=== PATIENT | female | born 1960 | race Caucasian/White ===

== ENCOUNTER 2016-09-10 15:29 | Outpatient (CLI) ==
--- NOTE | 2016-09-10 15:57 | DI ---
Exam: Two x-rays of the chest. Reason for exam: Cough. Comparison: None available. Reason for exam: Cough. FINDINGS: No pneumothorax, pleural effusion, or focal consolidation. The cardiac silhouette is not enlarged. The imaged osseous structures are unremarkable without acute fracture. Impression: No acute cardiopulmonary process.
--- NOTE | 2016-09-10 16:01 | DI ---
Exam: Six x-rays of the cervical spine. Comparison: None available. Reason for exam: Pain with radiculopathy. FINDINGS: Imaging is obtained to the level of the C6 vertebral body. The C6-C7 and C7-T1 interspac e are not well seen secondary to summation shadowing. The dens is intact on the Alvarez view. No acute fracture or listhesis. The prevertebral soft tissu es are within normal limits. There is straightening of the cervical lordotic curve. Impression: 1. No acute fracture or listhesis in the imaged portions of the cervical spine. 2. The C6-7 and C7-T1 interspaces and C7 and T1 vertebral bodies are not well seen secondary to sum mation shadowing. If clinical concern exists for radiculopathy, MRI may be performed.
--- NOTE | 2016-09-10 16:23 | DI ---
EXAM: Lumbar spine five views HISTORY: Back pain COMPARISON: None TECHNIQUE: Five views lumbar spine were performed including oblique views FINDINGS: Sacroiliac joints intact. Sacral arcuate lines intact. Vertebral bodies normal in heigh t. No subluxation. Multilevel marginal osteophyte formation. Intervertebral disc spaces maintained . Suggestion of multilevel facet arthrosis. Questionable left unilateral pars defect L5. Mild ath erosclerosis. IMPRESSION: 1. Chronic discogenic degenerative disease and facet arthrosis. 2. Questionable left unilateral pars defect L5. No anterolisthesis.
== END 2016-09-10 15:30 | disposition home or self-care (01) ==
LOC: RAD 15:29
PROVIDERS: ATTEND Internal Medicine
DX: R05 Cough (principal); M54.9 Dorsalgia, unspecified; M54.10 Radiculopathy, site unspecified

== ENCOUNTER 2017-01-22 08:40 | Outpatient (CLI) ==
--- NOTE | 2017-01-22 09:27 | US ---
EXAM: Transvaginal pelvic ultrasound HISTORY: Pelvic pain with history of ablation COMPARISON: None TECHNIQUE: Transvaginal pelvic ultrasound was performed to better evaluate the structures. Limited Doppler was provided. FINDINGS: The uterus measures 5.9 x 2.8 x 3.5 cm. There is a complex hypoechoic mass in the uterus most consistent with a fibroid measuring 1.7 x 1.3 x 2.0 cm. The endometrium measures 0.3 cm in thic kness. Cervix is normal in appearance. The right ovary is not seen. The left ovary measures 1.4 x 1.9 x 1.5 cm. There is normal color Doppler flow. IMPRESSION: 1. Complex hypoechoic mass in the uterus most consistent with a fibroid. 2. No additional abnormality is identified.
== END 2017-01-22 08:41 | disposition home or self-care (01) ==
LOC: RAD 08:40
PROVIDERS: ATTEND Nurse Practitioner Family
DX: R10.2 Pelvic and perineal pain (principal)

== ENCOUNTER 2017-05-05 10:19 | Outpatient (CLI) | payer OTHER | END 2017-05-05 10:20 | disposition home or self-care (01) | LOC: FCC-LAB 10:19 | PROVIDERS: ATTEND Nurse Practitioner Family | DX: R50.9 Fever, unspecified (principal) | CPT/HCPCS: 87804 ==

== ENCOUNTER 2019-11-24 09:06 | Observation (INO) ==
--- NOTE | 2019-11-24 09:40 | ED.PDOC ---
General ED Provider: Dr. CHRISTA MENDOZA Chief Complaint: Chest Pain Stated Complaint: Chest pain Intermittent for 5 days; initially occurred when at work, walking and exertional activities Time Seen by Physician: 09:25 Mode of Arrival: Walk-In Information Source: Patient Exam Limitations: No limitations Primary Care Provider: HERSON RAI Nursing and Triage Documentation Reviewed and Agree: Yes Does patient meet sepsis criteria?: No System Inflammatory Response Syndrome: Not Applicable Sepsis Protocol: For patient's 13 years and over: Temp is 96.8 and below OR 101 and greater Pulse >90 BPM Resp >20/minute Acutely Altered Mental Status Are patient's symptoms suggestive of a new infection, such as: -Pneumonia -Skin, Soft Tissue -Endocarditis -UTI -Bone, Joint Infection -Implantable Device -Acute Abdominal Infection -Wound Infection -Meningitis -Blood Stream Catheter Infection -Unknown Cardiovascular Complaint Exam Chest Pain Complaint/Exam Onset: Gradual Duration: 12 hr intermittently Symptoms Are: Resolved Timing: Intermittent Initial Severity: Moderate Current Severity: Mild Location: Reports Discrete, Midsternal and Left anterior Pain Radiates: Reports None Character: Reports Dull, Aching and Tightness Aggravating: Reports Movement and Deep breaths Alleviating: Reports Spontaneous resolution Associated Signs and Symptoms: Denies Diaphoresis, Nausea, Vomiting, Fever, Palpitations, Cough, Hemoptysis, Back pain, Abdominal pain, Dizziness, Short of air, Calf pain and Calf swelling Related History: Reports Similar episode Related Surgical History: Reports None History of Healthcare-Acquired Pneumonia: Reports No AMI/ACS Risk Factors: Reports None TAD Risk Factors: Reports None Pulmonary Embolism Risk Factors: Reports Smoking Prior Care for this Complaint: No Recent Stress Test: No Recent Echo/LV Function: No JVD Present: No Subcutaneous Emphysema Present: No Diminshed Breath Sounds: No Reproducible Chest Wall Pain: No Bilateral Pulses Present: Yes Unequal Pulses Noted: No Documents Reviewed: EMS records, Labs, Imaging and EKG Patient Advised to Stop Smoking: Yes Review of Systems Review Of Systems Constitutional: Reports No symptoms Eyes: Reports No symptoms Ears, Nose, Mouth, Throat: Reports No symptoms Respiratory: Reports No symptoms Cardiac: Reports No symptoms GI: Reports No symptoms : Reports No symptoms Musculoskeletal: Reports No symptoms Skin: Reports No symptoms Neurological: Reports No symptoms Endocrine: Reports No symptoms Hematologic/Lymphatic: Reports No symptoms All Other Systems: Reviewed and Negative [facility] Medical History High triglycerides Hyperlipidemia Hypertension Family History Mother Heart attack Social History (Updated 11/24/19 @ 11:37 by CARLOS LAMBERT RN) Smoking and tobacco status: Current every day smoker Female Reproductive History Menstrual Hx Hysterectomy: No Hx Tubal Ligation: No Physical Exam Physical Exam Appearance: Reports Well-appearing, No pain distress and Well-nourished Ill-appearing: None Pain Distress: None Eyes: Reports RAYMUNDO, EOMI and Conjunctiva clear ENT: Reports Ears normal, Nose normal and Oropharynx normal Neck: Supple Respiratory: Reports Airway patent, Breath sounds clear, Breath sounds equal and Respirations nonlabored Cardiovascular: Reports RRR, Pulses normal, No rub and No murmur GI/: Reports Soft, Nontender, No masses, Bowel sounds normal and No Organomegaly Musculoskeletal: Reports Normal strength, ROM intact, No edema and No calf tenderness Skin: Reports Warm, Dry and Normal color Neurological: Reports Sensation intact, Motor intact, Reflexes intact, Cranial nerves intact, Alert and Oriented Psychiatric: Reports Affect appropriate and Mood appropriate Critical Care Note Critical Care Note Total Time (mins): 30 Comments: Pts condition monitored, labs obtained and reviewed. Coordinated hospital care with DR Rai and completed admitting orders Course Course Hematology/Chemistry: 11/24/19 09:50 11/24/19 09:50 Orders, Labs, Meds: Lab Review 11/24/19 11/24/19 11/24/19 09:50 09:50 09:50 WBC 5.75 RBC 4.28 Hgb 13.1 Hct 39.2 MCV 91.6 MCH 30.6 MCHC 33.4 RDW Coeff of Jonathan 13.0 Plt Count 223 Immature Gran % (Auto) 0.2 Neut % (Auto) 60.0 Lymph % (Auto) 31.1 Grand % (Auto) 7.0 Eos % (Auto) 1.0 Baso % (Auto) 0.7 Neut # (Auto) 3.5 Lymph # (Auto) 1.8 Grand # (Auto) 0.4 Eos # (Auto) 0.1 Baso # (Auto) 0.0 Immature Gran # (Auto) 0.0 ESR PT INR APTT Sodium 137.7 Potassium 3.93 Chloride 103.5 Carbon Dioxide 32.7 H Anion Gap 5.43 BUN 13.7 Creatinine 0.66 Estimated GFR (MDRD) 92.00 BUN/Creatinine Ratio 20.75 Glucose 109.5 H Calcium 9.56 Magnesium Total Bilirubin 0.35 AST 45.9 H ALT 29.7 Alkaline Phosphatase 57.2 Troponin I Total Protein 6.83 Albumin 3.94 Globulin 2.89 Albumin/Globulin Ratio 1.36 Amylase 59.9 Lipase D-Dimer 284.17 Urine Color Urine Clarity Urine pH Ur Specific [place] Urine Protein Urine Glucose (UA) Urine Ketones Urine Blood Urine Nitrite Urine Bilirubin Urine Urobilinogen Ur Leukocyte Esterase Urine Microscopic RBC Ur Squamous Epith Cells Urine Opiates Screen Ur Oxycodone Screen Urine Methadone Screen Ur Propoxyphene Screen Ur Barbiturates Screen U Tricyclic Antidepress Ur Phencyclidine Scrn Ur Amphetamine Screen U Methamphetamines Scrn U Benzodiazepines Scrn Urine Cocaine Screen U Cannabinoids Screen 11/24/19 11/24/19 11/24/19 09:50 09:50 09:50 WBC RBC Hgb Hct MCV MCH MCHC RDW Coeff of Jonathan Plt Count Immature Gran % (Auto) Neut % (Auto) Lymph % (Auto) Grand % (Auto) Eos % (Auto) Baso % (Auto) Neut # (Auto) Lymph # (Auto) Grand # (Auto) Eos # (Auto) Baso # (Auto) Immature Gran # (Auto) ESR 8 PT 10.0 INR 1.02 APTT 25.1 Sodium Potassium Chloride Carbon Dioxide Anion Gap BUN Creatinine Estimated GFR (MDRD) BUN/Creatinine Ratio Glucose Calcium Magnesium 1.98 Total Bilirubin AST ALT Alkaline Phosphatase Troponin I 0.025 Total Protein Albumin Globulin Albumin/Globulin Ratio Amylase Lipase 59.9 D-Dimer Urine Color Urine Clarity Urine pH Ur Specific [place] Urine Protein Urine Glucose (UA) Urine Ketones Urine Blood Urine Nitrite Urine Bilirubin Urine Urobilinogen Ur Leukocyte Esterase Urine Microscopic RBC Ur Squamous Epith Cells Urine Opiates Screen Ur Oxycodone Screen Urine Methadone Screen Ur Propoxyphene Screen Ur Barbiturates Screen U Tricyclic Antidepress Ur Phencyclidine Scrn Ur Amphetamine Screen U Methamphetamines Scrn U Benzodiazepines Scrn Urine Cocaine Screen U Cannabinoids Screen 11/24/19 11/24/19 10:04 10:04 WBC RBC Hgb Hct MCV MCH MCHC RDW Coeff of Jonathan Plt Count Immature Gran % (Auto) Neut % (Auto) Lymph % (Auto) Grand % (Auto) Eos % (Auto) Baso % (Auto) Neut # (Auto) Lymph # (Auto) Grand # (Auto) Eos # (Auto) Baso # (Auto) Immature Gran # (Auto) ESR PT INR APTT Sodium Potassium Chloride Carbon Dioxide Anion Gap BUN Creatinine Estimated GFR (MDRD) BUN/Creatinine Ratio Glucose Calcium Magnesium Total Bilirubin AST ALT Alkaline Phosphatase Troponin I Total Protein Albumin Globulin Albumin/Globulin Ratio Amylase Lipase D-Dimer Urine Color Yellow Urine Clarity Clear Urine pH 7.5 Ur Specific [place] 1.020 Urine Protein Negative Urine Glucose (UA) Negative Urine Ketones Negative Urine Blood Trace-intact H Urine Nitrite Negative Urine Bilirubin Negative Urine Urobilinogen 0.2 Ur Leukocyte Esterase Negative Urine Microscopic RBC 0-2 Ur Squamous Epith Cells 20-30 Urine Opiates Screen Positive H Ur Oxycodone Screen Negative Urine Methadone Screen Negative Ur Propoxyphene Screen Negative Ur Barbiturates Screen Negative U Tricyclic Antidepress Negative Ur Phencyclidine Scrn Negative Ur Amphetamine Screen Negative U Methamphetamines Scrn Negative U Benzodiazepines Scrn Negative Urine Cocaine Screen Negative U Cannabinoids Screen Negative Orders Category Date Time Status EKG-(ED ONLY) Stat CARDIO 11/24/19 09:41 Completed OXYGEN Routine CARDIO 11/24/19 11:16 Completed ACTIVITY .BR with BRP CARE 11/24/19 11:17 Active BLOOD GLUCOSE MONITORING 0630,1100,1700,2100 CARE 11/24/19 11:18 Active INTAKE & OUTPUT Q8HR CARE 11/24/19 11:17 Active Notify RT of Treatment ONCE CARE 11/24/19 11:18 Active VITAL SIGNS Q4HR CARE 11/24/19 11:17 Active CARDIAC DIET DIETARY 11/24/19 Lunch Ordered IV [ED IV/MEDIPORT/POWERPORT] .ONCE EMERGENCY 11/24/19 09:41 Active AMYLASE Stat LAB 11/24/19 09:50 Completed CBC W/ AUTO DIFF DAILY@0600 LAB 11/25/19 06:00 Ordered CBC W/ AUTO DIFF DAILY@0600 LAB 11/26/19 06:00 Ordered CBC W/ AUTO DIFF Stat LAB 11/24/19 09:50 Completed CMP [COMPREHENSIVE METABOLIC PANEL] Stat LAB 11/24/19 09:50 Completed COMPREHENSIVE METABOLIC PANEL DAILY@0600 LAB 11/25/19 06:00 Ordered COMPREHENSIVE METABOLIC PANEL DAILY@0600 LAB 11/26/19 06:00 Ordered D-DIMER Stat LAB 11/24/19 09:50 Completed ESR Stat LAB 11/24/19 09:50 Completed LIPASE Stat LAB 11/24/19 09:50 Completed MAGNESIUM Stat LAB 11/24/19 09:50 Completed PARTIAL THROMBOPLASTIN TIME Stat LAB 11/24/19 09:50 Completed PT WITH INR Stat LAB 11/24/19 09:50 Completed TROPONIN I Q8H LAB 11/24/19 17:36 Completed TROPONIN I Q8H LAB 11/25/19 01:30 Ordered TROPONIN I Stat LAB 11/24/19 09:50 Completed UA [URINALYSIS C & S IF INDICATED] Stat LAB 11/24/19 10:04 Completed URINE DRUG SCREEN (RAPID FOR ED) [DRUG SCREEN, URINE, LAB 11/24/19 10:04 Completed RAPID] Stat 0.9 % Sodium Chloride [Saline Flush] MEDS 11/24/19 09:41 Active 1 syr IVF PRN PRN Aspirin [Aspirin Chewable] MEDS 11/24/19 09:49 Discontinued 324 mg PO ONCE STA Losartan Potassium [Cozaar] MEDS 11/24/19 09:48 Discontinued 50 mg .ROUTE .STK-MED ONE Losartan Potassium [Cozaar] MEDS 11/24/19 09:41 Discontinued 50 mg PO ONCE STA Losartan Potassium [Cozaar] MEDS 11/24/19 09:48 Discontinued 50 mg PO ONCE STA Sodium Chloride 0.9% [Sodium Chloride] 1,000 ml MEDS 11/24/19 11:30 Active IV 75 mls/hr RESUSCITATION STATUS Routine OTHERS 11/24/19 11:16 Ordered CHEST, 1V AP ONLY Stat RADS 11/24/19 09:41 Completed Medications Generic Name Dose Route Start Last Admin Trade Name Freq PRN Reason Stop Dose Admin Hydrocodone Bitart/Acetaminophen 1 tab 11/24/19 11:37 Hydrocodone Bit/Acetaminophen 7.5/325 Mg Tablet PO Q6H PRN Pain Al Hydroxide/Mg Hydroxide 30 ml 11/24/19 14:30 Mag-Al Plus//Lidocaine 30 Ml Btl PO QID PRN Chest Pain Amlodipine Besylate 5 mg 11/24/19 14:30 11/24/19 14:42 Amlodipine Besylate 5 Mg Tablet PO 5 mg BID MARGARITA Administration Aspirin 81 mg 11/25/19 08:30 Aspirin 81 Mg Tab.Chew PO DAILYWM MARGARITA Atorvastatin Calcium 40 mg 11/24/19 12:03 11/24/19 12:43 Atorvastatin Calcium 20 Mg Tablet PO 40 mg DAILY MARGARITA Administration Cholecalciferol 5,000 unit 11/24/19 12:03 11/24/19 12:42 Cholecalciferol (Vitamin D3) 1,000 Unit Tablet PO 5,000 unit DAILY MARGARITA Administration Fenofibrate 160 mg 11/24/19 12:04 11/24/19 12:43 Fenofibrate 160 Mg Tablet PO 160 mg DAILY MARGARITA Administration Sodium Chloride 1,000 mls @ 75 mls/hr 11/24/19 11:30 11/24/19 12:00 Sodium Chloride IV 75 mls/hr .[id number] MARGARITA Administration Losartan Potassium 50 mg 11/25/19 09:00 Losartan Potassium 25 Mg Tablet PO DAILY MARGARITA Multivitamins 1 tab 11/24/19 11:40 11/24/19 12:43 Multivitamin 1 Tab PO 1 tab DAILY MARGARITA Administration Pantoprazole Sodium 40 mg 11/24/19 14:30 11/24/19 14:42 Pantoprazole Sodium 40 Mg Tablet.Dr PO 40 mg BIDAC MARGARITA Administration Sodium Chloride 1 syr 11/24/19 09:41 11/24/19 09:49 0.9% Sodium Chloride 10 Ml Disp.Syrin IVF 1 syr PRN PRN Administration To flush IV Discontinued Medications Generic Name Dose Route Start Last Admin Trade Name Freq PRN Reason Stop Dose Admin Aspirin 324 mg 11/24/19 09:49 11/24/19 09:59 Aspirin 81 Mg Tab.Chew PO 11/24/19 09:50 324 mg ONCE STA Administration Atorvastatin Calcium 40 mg 11/25/19 09:00 Atorvastatin Calcium 20 Mg Tablet PO DAILY MARGARITA Cholecalciferol 5,000 unit 11/25/19 09:00 Cholecalciferol (Vitamin D3) 1,000 Unit Tablet PO DAILY MARGARITA Fenofibrate 160 mg 11/25/19 09:00 Fenofibrate 160 Mg Tablet PO DAILY MARGARITA Losartan Potassium 50 mg 11/24/19 09:41 11/24/19 10:00 Losartan Potassium 100 Mg Tablet PO 11/24/19 09:42 Not Given ONCE STA Losartan Potassium 50 mg 11/24/19 09:48 11/24/19 10:03 Losartan Potassium 25 Mg Tablet PO 11/24/19 09:49 Not Given ONCE STA Vital Signs: Temp Pulse Resp BP Pulse Ox 11/24/19 09:06 97.4 F L 69 18 194/105 H 97 HERIBERTO Risk Score HERIBERTO Risk Score: Risk Score Odds of by 30D 0 0.1 (0.1-0.2) 1 0.3 (0.2-0.3) 2 0.4 (0.3-0.5) 3 0.7 (0.6-0.9) 4 1.2 (1.0-1.5) 5 2.2 (1.9-2.6) 6 3.0 (2.5-3.6) 7 4.8 (3.8-6.1) Discharge Plan Discharge Patient Disposition: PLACED OBSERVATION Discharge Problem: Chest pain, Hypertension ED Provider: CHRISTA MENDOZA Condition: Stable
[2019-11-24] MEDS ORDERED: COZAAR PO STA (09:48)
[2019-11-24] MEDS ORDERED: COZAAR ONE (09:48)
[2019-11-24] MEDS ORDERED: ASPIRIN CHEWABLE PO STA (09:49)
[2019-11-24] MEDS: COZAAR PO STA ×2 (09:52→10:00)
[2019-11-24 10:09] LABS: BASOPHILS % (AUTO) 0.7 % (0.0-3.0); EOSINOPHILS # (AUTO) 0.1 K/ul (0.0-0.7); HEMATOCRIT 39.2 % (37.0-47.0); HEMOGLOBIN 13.1 g/dl (12.0-16.0); IMMATURE GRANULOCYTE % (AUTO) 0.2 % (0.0-5.0); LYMPHOCYTES # (AUTO) 1.8 K/uL (0.60-3.4); LYMPHOCYTES % (AUTO) 31.1 (10.0-50.0); MEAN CORPUSCULAR HGB CONC 33.4 (31.8-35.4); MEAN CORPUSCULAR VOLUME 91.6 fl (81.0-99.0); MONOCYTES # (AUTO) 0.4 K/uL (0.4-2.0); NEUTROPHILS # (AUTO) 3.5 K/ul (2.0-6.9); PLATELET COUNT 223 10^3/uL (140-440); RED BLOOD COUNT 4.28 10^6/ul (4.20-5.40); WHITE BLOOD COUNT 5.75 K/ul (4.6-10.2)
--- NOTE | 2019-11-24 10:17 | DI ---
EXAM: Frontal chest HISTORY: Chest pain FINDINGS: Compared to 09/10/2016. Heart size and general mediastinal contour remain within normal l imits. No acute infiltrates are seen. No vascular congestion. There is no consolidation, visible p leural fluid or pneumothorax. Bones reveal no acute fracture. IMPRESSION: No acute cardiopulmonary process.
[2019-11-24 10:18] LABS: LIPASE 59.9 U/L (23-300); MAGNESIUM 1.98 mg/dL (1.6-2.3)
[2019-11-24 10:19] LABS: ALANINE AMINOTRANSFERASE 29.7 U/L (0-35); ALBUMIN 3.94 g/dL (3.5-5.0); ALKALINE PHOSPHATASE 57.2 U/L (38-126); AMYLASE 59.9 U/L (30-110); ASPARTATE AMINO TRANSFERASE 45.9 U/L (14-36); BILIRUBIN,TOTAL 0.35 mg/dL (0.2-1.3); BLOOD UREA NITROGEN 13.7 mg/dL (7-17); CALCIUM 9.56 mg/dL (8.4-10.2); CARBON DIOXIDE 32.7 mmol/L (22-30.0); CHLORIDE 103.5 mmol/L (98-107); CREATININE 0.66 mg/dL (0.60-1.30); GLUCOSE 109.5 mg/dL (74-106); SODIUM 137.7 mmol/L (134.5-145); TOTAL PROTEIN 6.83 g/dL (6.3-8.2)
[2019-11-24 10:23] LABS: BILIRUBIN,URINE Negative (NEGATIVE); CLARITY,URINE Clear (CLEAR); COLOR,URINE Yellow (YELLOW); GLUCOSE, URINE (UA) Negative (NEGATIVE); KETONES,URINE Negative (NEGATIVE); LEUKOCYTE ESTERASE ,URINE Negative (NEGATIVE); NITRITE,URINE Negative (NEGATIVE); PH,URINE 7.5 (5-9); URINE, BLOOD Trace-intact (NEGATIVE); UROBILINOGEN,URINE 0.2 (0.2)
[2019-11-24 10:34] LABS: AMPHETAMINE SCREEN,URINE NEGATIVE (NEGATIVE); BARBITURATE SCREEN,URINE NEGATIVE (NEGATIVE); BENZODIAZEPINES SCREEN,URINE NEGATIVE (NEGATIVE); CANNABINOID SCREEN,URINE NEGATIVE (NEGATIVE); COCAIN SCREEN,URINE NEGATIVE (NEGATIVE); METHADONE URINE SCREEN NEGATIVE (NEGATIVE); METHAMPHETAMINES SCREEN,URINE NEGATIVE (NEGATIVE); OPIATE SCREEN,URINE POSITIVE (NEGATIVE); OXYCODONE URINE SCREEN NEGATIVE (NEGATIVE); PHENCYCLIDINE SCREEN,URINE NEGATIVE (NEGATIVE); PROPOXYPHENE URINE SCREEN NEGATIVE (NEGATIVE); TRICYCLIC ANTIDEPRESSANTS URIN NEGATIVE (NEGATIVE)
[2019-11-24 10:39] LABS: SQUAMOUS EPITHELIAL CELL,UR 20-30 (0-5); URINE RBC, MICROSCOPIC 0-2 (0-2)
[2019-11-24 10:41] LABS: PARTIAL THROMBOPLASTIN TIME 25.1 SEC (23.9-40.0)
[2019-11-24 10:46] LABS: ERYTHROCYTE SEDIMENTATION RATE 8 mm/hr (0-20)
[2019-11-24 11:32] VITALS: BMI 23.6
[2019-11-24] MEDS ORDERED: NORCO 7.5-325 PO PRN (11:37)
[2019-11-24] MEDS ORDERED: NON-FORMULARY MEDICATION (Aspirin 81 mg Tablet) PO SCH (11:45)
[2019-11-24] MEDS: SODIUM CHLORIDE 1,000 ML IV SCH (12:00)
[2019-11-24] MEDS: VITAMIN D PO SCH (12:42)
[2019-11-24] MEDS: MULTIVITAMIN TABLET PO SCH (12:43)
[2019-11-24] MEDS: LIPITOR PO SCH (12:43)
[2019-11-24] MEDS: TRIGLIDE PO SCH (12:43)
[2019-11-24] MEDS ORDERED: GI COCKTAIL PO PRN (14:30)
[2019-11-24] MEDS: NORVASC PO SCH ×2 (14:42→20:31)
[2019-11-24] MEDS: PROTONIX PO SCH (14:42)
--- NOTE | 2019-11-24 16:57 | US ---
EXAM: Bilateral carotid Doppler HISTORY: Hypertension TECHNIQUE: Real time color Doppler and pulse Doppler imaging was performed on the bilateral common c arotid, internal carotid, external carotid and vertebral arteries. Intrepretation performed utilizin g NASCET creiteria. FINDINGS: RIGHT: (all velocities in cm/sec, peak systolic/peak diastolic). ICA: 99/43 ICA/CCA ratio:A one point a CCA: 56/19 ECA:And 82 Vertebral: Antegrade, Plaque: Mild plaque in the carotid bulb and proximal ICA. LEFT: (all velocities in cm/sec, peak systolic/peak diastolic). ICA: 109/45 ICA/CCA ratio: Of 1.4 CCA: 78/27 ECA: 78 Vertebral: Antegrade, Plaque: Mild plaque in the carotid bulb and proximal ICA. IMPRESSION: Bilateral ICA velocities consistent with mild (less than 50%) narrowing
[2019-11-25] MEDS: SODIUM CHLORIDE 1,000 ML IV SCH (01:41)
[2019-11-25] MEDS: PROTONIX PO SCH ×2 (05:33→08:47)
[2019-11-25 05:45] LABS: BASOPHILS % (AUTO) 0.5 % (0.0-3.0); EOSINOPHILS # (AUTO) 0.1 K/ul (0.0-0.7); EOSINOPHILS % (AUTO) 1.3 % (0.0-7.0); HEMATOCRIT 40.1 % (37.0-47.0); HEMOGLOBIN 13.6 g/dl (12.0-16.0); IMMATURE GRANULOCYTE % (AUTO) 0.2 % (0.0-5.0); LYMPHOCYTES # (AUTO) 1.6 K/uL (0.60-3.4); LYMPHOCYTES % (AUTO) 26.2 (10.0-50.0); MEAN CORPUSCULAR HGB CONC 33.9 (31.8-35.4); MEAN CORPUSCULAR VOLUME 90.3 fl (81.0-99.0); MONOCYTES # (AUTO) 0.4 K/uL (0.4-2.0); MONOCYTES % (AUTO) 6.3 (0-10); NEUTROPHILS # (AUTO) 3.9 K/ul (2.0-6.9); NEUTROPHILS % (AUTO) 65.5 % (42.2-75.2); PLATELET COUNT 245 10^3/uL (140-440); RDW COEFFICIENT OF VARIATION 12.9 % (11.6-14.8); RED BLOOD COUNT 4.44 10^6/ul (4.20-5.40)
[2019-11-25 05:55] LABS: ALANINE AMINOTRANSFERASE 26.5 U/L (0-35); ALBUMIN 4.02 g/dL (3.5-5.0); ALKALINE PHOSPHATASE 65.9 U/L (38-126); ASPARTATE AMINO TRANSFERASE 35.2 U/L (14-36); BILIRUBIN,TOTAL 0.42 mg/dL (0.2-1.3); BLOOD UREA NITROGEN 11.2 mg/dL (7-17); CALCIUM 9.43 mg/dL (8.4-10.2); CARBON DIOXIDE 27.1 mmol/L (22-30.0); CHLORIDE 108.8 mmol/L (98-107); CREATININE 0.58 mg/dL (0.60-1.30); GLUCOSE 116.5 mg/dL (74-106); SODIUM 140.4 mmol/L (134.5-145); TOTAL PROTEIN 7.21 g/dL (6.3-8.2)
[2019-11-25] MEDS ORDERED: ASPIRIN CHEWABLE PO SCH (08:30)
[2019-11-25] MEDS: NORVASC PO SCH (08:46)
[2019-11-25] MEDS: LIPITOR PO SCH (08:46)
[2019-11-25] MEDS: MULTIVITAMIN TABLET PO SCH (08:47)
[2019-11-25] MEDS: TRIGLIDE PO SCH (08:47)
[2019-11-25] MEDS: VITAMIN D PO SCH (08:52)
[2019-11-25] MEDS ORDERED: LIPITOR PO SCH (09:00)
[2019-11-25] MEDS ORDERED: COZAAR PO SCH (09:00)
[2019-11-25] MEDS ORDERED: TRIGLIDE PO SCH (09:00)
[2019-11-25] MEDS ORDERED: VITAMIN D PO SCH (09:00)
[2019-11-25 09:24] LABS: CREATINE KINASE 50.4 U/L (30-135)
[2019-11-25] MEDS ORDERED: LOPRESSOR PO SCH (09:45)
--- NOTE | 2019-11-25 13:16 | ECHO2D ---
Date of Exam: 11/24/2019 Ordering Physician: DR. HERSON RAI Room #: [id number] Reason for Echo: CHEST PAIN M-Mode Normal Adult Results LV Dimensions Normal Adult Results AoV Opening excursions >1.6 >1.6 LVEDD-base- 3.5-5.8 4.3 Ao root dimensions 2.0-3.7 3.4 LVESD-base- 3.1-4.6 L. Atrium dimensions 1.9-3.8 3.5 Post. Wall thickness 0.8-1.1 1.2 IV septum (thickness) 0.7-1.2 1.2 Post. Wall excursion 0.72-1.3 NORMAL Septal motion NORMAL Systolic motion R. Ventricular cavity 1.5-2.0 NORMAL LVEF 60% 77% Paradoxical septal wall motion NORMAL 2-D : 2-D M Mode Echocardiogram was performed using apical four chamber and left parasternal long and short axis views. Mitral, tricuspid and aortic valves appear to be normal. Contractility of the left ventricle seems to be normal, so is the cavity size. Left atrial cavity size and aortic root appear to be normal. There is no pericardial effusion. There is no thrombus noted in the left ventricle or left atrial cavity. No mitral valve prolapse noted. M-MODE: MV: NORMAL AV: NORMAL TV: NORMAL PV: CHAMBER SIZE: NORMAL WALL MOTION: NORMAL PERICARDIUM: NORMAL INTERPRETATION: 1. BORDERLINE LEFT VENTRICULAR HYPERTROPHY 2. NORMAL VALVES 3. NORMAL LEFT VENTRICULAR CONTRACTILITY MTDD
[2019-11-25 14:20] VITALS: BP 152/82; TEMP 98.5
--- NOTE | 2019-11-28 12:36 | PN ---
DATE OF SERVICE: 11/24/2019 SUBJECTIVE: The patient was seen and examined in the emergency room. The patient was hospitalized with complaint of having chest pain which seems to be exertional. She has these symptoms for two to three weeks. The patient has several risk factors for coronary artery disease like smoking, hypertension, dyslipidemia. She has a family history of heart disease. The patient doesn't have any symptoms of CHF. The patient has some symptoms of reflux. REVIEW OF SYSTEMS: CONSTITUTIONAL: No night sweats. No fatigue, malaise, lethargy. No fever or chills. HEENT: Eyes: No visual changes. No eye pain. No eye discharge. ENT: No runny nose. No epistaxis. No sinus pain. No sore throat. No odynophagia. No congestion. RESPIRATORY: No cough, no congestion. No hemoptysis. No shortness of breath. CARDIOVASCULAR: No angina symptoms. No CHF symptoms. No atypical chest pain for CAD. No palpitations. No PND. No orthopnea. GASTROINTESTINAL: No abdominal pain. No nausea or vomiting. No diarrhea or constipation. No hematemesis. No hematochezia. GENITOURINARY: No urgency. No frequency. No dysuria. No hematuria. No obstructive symptoms. No discharge. No pain. No significant abnormal bleeding. MUSCULOSKELETAL: No musculoskeletal pain; no joint swelling. NEUROLOGICAL: No headache. No neck pain. No syncope. No seizures. No dizziness. PSYCHIATRIC: Not anxious. No depression. No suicidal thoughts. No homicidal thoughts. SKIN: No rash. No lesions. No wounds. ENDOCRINE: No unexplained weight loss. No weight gain. HEMATOLOGIC/LYMPHATIC: No anemia. No purpura. No petechiae. No prolonged or excessive bleeding. No palpable lymph nodes. PHYSICAL EXAMINATION: GENERAL: The patient is oriented to time, place and person. HEENT: Head normocephalic, atraumatic. Eyes: Extraocular muscles are intact. Pupils are equal, round and reactive to light and accommodation. Ears: No lesions. Nose appeared normal. Throat: No exudate or erythema. NECK: Supple. No JVD, no carotid bruit. No lymphadenopathy or thyromegaly. LUNGS: Decreased breath sounds. Clear to auscultation. Percussion note normal. Chest symmetrical. HEART: S1, S2, no S3. No murmurs. Sinus rhythm. Nonspecific ST-T wave change. No cyanosis or clubbing. No ascites. Pulses: Dorsalis pedis and posterior tibial pulses +1 to +2 bilaterally. ABDOMEN: Soft. Nontender. Bowel sounds active. No CVA tenderness. No mass felt. EXTREMITIES: No edema. Full range of motion of all extremities, equal. NEUROLOGIC: No focal deficit. Cranial nerves II through XII are grossly intact. No headache, no double vision or headache. SKIN: Not dry. Intact. Turgor - normal. LYMPHATIC: No palpable lymph nodes/no lymphedema. MUSCULOSKELETAL: Normal joints with no swelling. Muscle tone is normal. LABS: Echocardiogram done which showed LVH with normal LV contractility. Contractility normal valvular structures. ASSESSMENT: 1. Chest pain seems to be cardiac with multiple risk factors for coronary artery disease PLAN: 1. Stress echo sestamibi in the morning 2. Telemetry to monitor the patient 3. Cardiac markers 4. EKG in the morning 5. The patient educated about coronary artery disease risk factors. Also educated about angina and symptoms of coronary insufficiency 6. Strongly advised to quit smoking, counseling for smoking done 7. The patient had severe hypertension on admission, the patient is going to be started on Norvasc 5mg twice a day along with Losartan 50mg in the morning. 8. The patient is going to be continued on Lipitor 40mg daily 9. Baby aspirin a day. CONDITION: Stable TIME SPENT: More than 30 minutes. Plan and coordination of the patient's care discussed in the presence of nurse. CEASAR
--- NOTE | 2019-11-28 13:20 | DS ---
DATE OF SERVICE: 11/25/2019 FINAL DIAGNOSIS: 1. Ischemia inferolateral wall 2. Exertional angina 3. History of heavy smoking 4. Hypertension 5. Dyslipidemia 6. DJD spine DISCHARGE INSTRUCTIONS: Transfer the patient to [facility]. MEDICATIONS AT DISCHARGE: [place] 25mg twice a day Norvasc 10mg BID Losartan 50mg PO daily Coated aspirin one a day Pravastatin 40mg daily Fenofibrate 160mg daily [place] BID PRN for pain SMOKING: Counseling for smoking done. HOSPITAL COURSE: 59 year old white female admitted to the observation through the emergency room as she came to the emergency room with history consistent with unstable angina. The patient with minimal exertion was getting short of breath with chest tightness. In the ER did have any pain. Her EKG showed nonspecific ST-T wave change. Troponin was negative. The patient was admitted for observation for further workup in a way of stress sestamibi but before the test is done on the follow day EKG showed ST depression with T wave inversion and 2-3LVF with lateral lead indicating inferolateral wall ischemia. The patient physically had no symptoms consistent with coronary insufficiency in the stay in the hospital. The patient's echo done on the day of hospitalization that is on 11-24-2019 showed borderline LVH with normal LV contractility. The patient has multiple risk factors like smoking, dyslipidemia, hypertension by history. Considering her change in the EKG with symptoms stress sestamibi was cancelled. Transfer center of [facility] was called so that the patient can be evaluated by invasive cardiology. Condition at the time of discharge is stable. The patient's was present in the room and explained about things. They agreed to be transferred to [facility]. TIME SPENT: More than 60 minutes. CEASAR
--- NOTE | 2019-11-28 13:21 | PN ---
11/24/2019: Level 5 11/25/2019: D as in discharge. MTDD
== END 2019-11-25 15:25 | disposition short-term general hospital (02) ==
LOC: ED 09:06 → MEDSURG B 09:06
PROVIDERS: ADMIT Internal Medicine; ATTEND Internal Medicine